=== PATIENT | male | born 2000 | race Two or more races ===

== ENCOUNTER 2020-03-01 10:26 | Emergency (ER) | payer OTHER ==
[~2020-03-01] VITALS: Ht 172.7 cm; Wt 83.9 kg
[2020-03-01 10:40] VITALS: BP 155/74
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
--- NOTE | 2020-03-01 10:47 | NUR ---
MEDICALLY CLEARED. DISCHARGE TO CLERK TELEGRAPH SERVICE [place] . STABLE CONDITION.
== END 2020-03-01 10:51 ==
LOC: ER 10:30
DX: Z02.89 Encounter for other administrative examinations (principal); F41.9 Anxiety disorder, unspecified; F32.9 Major depressive disorder, single episode, unspecified